=== PATIENT | male | born 1965 | race African-American/Black ===

== ENCOUNTER 2016-10-12 22:01 | Emergency (ER) | payer BC, OTHER ==
[2016-10-13] MEDS ORDERED: KETOROLAC TROMETHAMINE 60 MG/2 ML SDV IM ONE (00:39)
[2016-10-13] MEDS ORDERED: HYDROCODONE/ACETAMINOPHEN 5-325 MG 6 TAB/DSPK PO PRN (00:39)
[2016-10-13] MEDS ORDERED: LIDOCAINE 5% (700 MG) TRANSDERMAL ADH..PATCH TP ONE (00:39)
--- NOTE | 2016-10-13 00:40 | ER Document Report ---
ED General - General Chief Complaint: Knee Pain Stated Complaint: KNEE PAIN Notes: Patient is a 51-year-old male who presents with 2 weeks of right knee pain. Does describe the pain as a constant, throbbing, severe pain worsened by ambulation or weight. He has been trying tramadol with minimal improvement of the pain. It is worse in the medial aspect the right knee. Denies a prior history of similar symptoms in the past. He has not seen his primary care physician regarding today's concerns. Denies any acute traumatic injury to the area. - Related Data Allergies/Adverse Reactions: No Known Allergies Allergy (Unverified 10/12/16 22:15) Past Medical History - General Information source: Patient - Social History Smoking Status: Never Smoker Frequency of alcohol use: None Drug Abuse: None Lives with: Spouse/Significant other Family History: Reviewed & Not Pertinent Patient has suicidal ideation: No Patient has homicidal ideation: No Renal/ Medical History: Denies: Hx Peritoneal Dialysis Review of Systems - Review of Systems Notes: Constitutional: Negative for fever. Cardiovascular: Negative for chest pain. Respiratory: Negative for shortness of breath. Gastrointestinal: Negative for vomiting Musculoskeletal: Negative for back pain. Positive for right knee pain Skin: Negative for rash. Neurological: Negative for weakness or numbness. 10 point ROS negative except as marked above and in HPI. Physical Exam - Vital signs Vitals: Temp Pulse Resp BP Pulse Ox 98.1 F 64 16 148/71 H 98 10/12/16 22:07 10/12/16 22:07 10/12/16 22:07 10/12/16 22:07 10/12/16 22:07 Interpretation: Hypertensive Notes: PHYSICAL EXAMINATION: GENERAL: Well-appearing, well-nourished and in no acute distress. HEAD: Atraumatic, normocephalic. EYES: sclera anicteric, conjunctiva are normal. ENT: Moist mucous membranes. NECK: Normal range of motion LUNGS: Normal work of breathing HEART: 2+ radial pulses bilaterally EXTREMITIES: Mild swelling of the right knee most prominent along the medial aspect the knee. Full flexion extension with moderate pain in all ranges of motion. There is no fluctuance to the right knee. No pain or palpitation the popliteal fossa. No calf edema or pain on palpation of the calf. NEUROLOGICAL: No focal neurological deficits. Moves all extremities spontaneously and on command. PSYCH: Normal mood, normal affect. SKIN: Warm, Dry, normal turgor, no rashes or lesions noted. Course - Re-evaluation Re-evalutation: 10/13/16 04:11 No evidence of a septic joint, gout flare, dislocation, or fracture on exam and imaging. Exam is most consistent with ligamentous injury. Vitals wnl. At this time, I do not see an indication for labs or further imaging. Will discharge with conservative measures, return precautions, and follow-up recommendations. - Vital Signs Vital signs: Temp Pulse Resp BP Pulse Ox 98.2 F 62 16 127/79 H 95 10/13/16 01:35 10/13/16 01:35 10/13/16 01:35 10/13/16 01:35 10/13/16 01:35 Discharge - Discharge Clinical Impression: Right knee pain Qualifiers: Chronicity: acute Qualified Code(s): M25.561 - Pain in right knee Condition: Good Disposition: HOME, SELF-CARE Additional Instructions: Your x-ray does not show any acute fracture today. You likely have a ligamentous strain. You should continue to take anti-inflammatories such as ibuprofen 600 mg every 6 hours. Continue to apply ice to the area is much your able. Please follow-up with your primary care physician if you do not have improving your symptoms in the next 1-2 weeks. Please return immediately if you develop weakness, numbness, spreading redness from the area, or any other symptoms that are concerning to you. Forms: Return to Work Referrals: DERRICK ORNELAS MD [Primary Care Provider] - Follow up as needed
[2016-10-13] MEDS ORDERED: LIDOCAINE 5% (700 MG) TRANSDERMAL ADH..PATCH ONE (01:20)
[2016-10-13 01:36] VITALS: BP 127/79
== END 2016-10-13 01:41 | disposition home or self-care (01) ==
LOC: ER 22:01
DX: M25.561 Pain in right knee (principal); Z79.899 Other long term (current) drug therapy
CPT/HCPCS: 99283; 96372; 73564; J1885

== ENCOUNTER 2017-01-01 06:03 | Day surgery (SDC) | payer BC ==
[2016-12-25 10:46] LABS: ABSOLUTE EOSINOPHILS # (AUTO) 0.1 10^3/uL (0.0-0.6); ABSOLUTE LYMPHOCYTES (AUTO) 2.1 10^3/uL (0.5-4.7); ABSOLUTE MONOCYTES (AUTO) 0.4 10^3/uL (0.1-1.4); ABSOLUTE NEUT (AUTO) 2.5 10^3/uL (1.7-8.2); BASOPHILS % (AUTO) 0.4 % (0-2); EOSINOPHILS % (AUTO) 2.2 % (0-6); HEMATOCRIT 41.9 % (37.9-51.0); HGB HCT DIFFERENCE 0.1; LYMPHOCYTES % (AUTO) 41.1 % (13-45); MEAN CORPUSCULAR HEMOGLOBIN 27.6 pg (27.0-33.4); MEAN CORPUSCULAR HGB CONC 33.5 g/dL (32.0-36.0); MEAN CORPUSCULAR VOLUME 83 fl (80-97); MONOCYTES % (AUTO) 8.3 % (3-13); RED BLOOD COUNT 5.07 10^6/uL (4.35-5.55); RED CELL DISTRIBUTION WIDTH 14.1 % (11.5-14.0); WHITE BLOOD COUNT 5.2 10^3/uL (4.0-10.5)
[2016-12-25 10:50] LABS: APPEARANCE,URINE CLEAR; BILIRUBIN,URINE NEGATIVE (NEGATIVE); GLUCOSE, URINE NEGATIVE (NEGATIVE); KETONES,URINE NEGATIVE (NEGATIVE); LEUKOCYTE ESTERASE,URINE NEGATIVE (NEGATIVE); NITRITE,URINE NEGATIVE (NEGATIVE); PROTEIN,URINE NEGATIVE (NEGATIVE); URINE SPECIFIC GRAVITY 1.032; UROBILINOGEN,URINE NEGATIVE mg/dL (<2.0)
[2016-12-25 11:06] LABS: ANION GAP 11 (5-19); BLOOD UREA NITROGEN 11 mg/dL (7-20); CARBON DIOXIDE 29 mmol/L (22-30); CHLORIDE 103 mmol/L (98-107); CREATININE RESULT 0.75 mg/dL (0.52-1.25); GLUCOSE 105 mg/dL (75-110); POTASSIUM 4.4 mmol/L (3.6-5.0); SODIUM 142.7 mmol/L (137-145)
--- NOTE | 2016-12-25 22:04 | EKG REPORT ---
SEVERITY:- NORMAL ECG - SINUS RHYTHM ST ELEV, PROBABLE NORMAL EARLY REPOL PATTERN : Confirmed by: Belén Chaparro MD 25-Dec-2016 22:03:34
[~2017-01-01 06:03] MED LIST: CEFAZOLIN 2 GM/D5W RTU 2 GM/50 ML RTUPB IV PRN; LACTATED RINGERS 1000 ML IV PRN
[2017-01-01 06:49] LABS: PARTIAL THROMBOPLASTIN TIME 27.5 SEC (23.5-35.8)
[2017-01-01] MEDS ORDERED: MIDAZOLAM 2 MG/2 ML INJ ONE (08:20)
[2017-01-01] MEDS ORDERED: FENTANYL CITRATE INJ/PF 100 MCG/2 ML AMPUL ONE (08:20)
[2017-01-01] MEDS ORDERED: PROPOFOL INJ 200 MG/20 ML VIAL IV ONE (08:21)
[2017-01-01] MEDS ORDERED: ACETAMINOPHEN 100 ML IV ONE (08:21)
[2017-01-01] MEDS ORDERED: PROMETHAZINE HCL INJ 25 MG/1 ML VIAL IV PRN ×2 (08:39)
[2017-01-01] MEDS ORDERED: OXYCODONE-ACETAMINOPHEN 5-325 MG TABLET PO PRN ×2 (08:39)
[2017-01-01] MEDS ORDERED: DIPHENHYDRAMINE HCL 50 MG/ML VIAL IV PRN (08:39)
[2017-01-01] MEDS ORDERED: MORPHINE SULFATE 10 MG/ML INJ IV PRN (08:39)
[2017-01-01] MEDS ORDERED: MEPERIDINE HCL/PF INJ 25 MG/1 ML DISP.SYRIN IV PRN (08:39)
[2017-01-01] MEDS ORDERED: FENTANYL CITRATE INJ/PF 100 MCG/2 ML AMPUL IV PRN ×3 (08:39)
[2017-01-01] MEDS ORDERED: BUPIVACAINE HCL 0.5 % INJ/PF 30 ML SDV ONE (09:01)
[2017-01-01] MEDS ORDERED: LIDOCAINE 1%/EPINEPHRINE INJ 20 ML VIAL ONE (09:01)
--- NOTE | 2017-01-01 09:14 | Operative Report ---
Operative Report DATE OF SURGERY: 01/01/17 PREOPERATIVE DIAGNOSIS: Right medial meniscal tear POSTOPERATIVE DIAGNOSIS: Right medial meniscal tear. 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 Intact anterior cruciate ligament. Intact lateral meniscus. Grade 1 chondral malacia lateral compartment. 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 The knee is insufflated with comminution Marcaine, Xylocaine, and epinephrine. Subsequent medial and lateral infrapatellar portals are created for the introduction the arthroscope and debridements mentation. Joint is examined in systematic fashion findings as above. Using comminution of basket Farrar, mechanical shaver, and left or frequency ablation probe a partial medial meniscectomy was performed from approximately 3: 00 to 12:00 in the face the dial. The osteochondral lesion in the trochlear groove which may also be described as a chondral delamination is debrided using a curette to remove all loose articular fragments. Subsequently the underlying subchondral bone is pockmarked using a spinal needle to effect a microfracture. At this point the joint. Again is a is examined in systematic fashion with no new findings. The incidence mentation is removed. The portals closed using interrupted nylon. A sterile compressive dressing is applied and the patient's returned to the PACU.
[2017-01-01] MEDS ORDERED: OXYCODONE HCL IR 5 MG TABLET PO PRN (09:20)
[2017-01-01] MEDS ORDERED: ONDANSETRON 4 MG TAB.RAPDIS PO PRN (09:21)
[2017-01-01 11:25] VITALS: BP 126/79
== END 2017-01-01 11:20 | disposition home or self-care (01) ==
LOC: OROUT 06:03
PROVIDERS: ATTEND Orthopaedic Surgery
PROC: 0SBC4ZZ Excision of Right Knee Joint, Percutaneous Endoscopic Approach (ICD-10-PCS; 2017-01-01)
PROC: 0SQC4ZZ Repair Right Knee Joint, Percutaneous Endoscopic Approach (ICD-10-PCS; principal; 2017-01-01 08:15)
DX: M23.205 Derangement of unspecified medial meniscus due to old tear or injury, unspecified knee (principal); M94.261 Chondromalacia, right knee; M93.261 Osteochondritis dissecans, right knee; I10 Essential (primary) hypertension; Z79.899 Other long term (current) drug therapy
CPT/HCPCS: 93005; 36415 ×2; 85025; 85610; 85730; 80048; 81001; 71020; 93010; 29879; 29881; J2250; J3010; J3490; J2704; J0690; J0131

== ENCOUNTER 2018-11-24 18:37 | Emergency (ER) | payer BC ==
[2018-11-24] MEDS ORDERED: ASPIRIN 81 MG TABLET, CHEWABLE PO ONE (20:17)
[2018-11-24 21:00] LABS: ABSOLUTE EOSINOPHILS # (AUTO) 0.2 10^3/uL (0.0-0.6); ABSOLUTE LYMPHOCYTES (AUTO) 2.4 10^3/uL (0.5-4.7); ABSOLUTE MONOCYTES (AUTO) 0.6 10^3/uL (0.1-1.4); ABSOLUTE NEUT (AUTO) 3.2 10^3/uL (1.7-8.2); BASOPHILS % (AUTO) 0.4 % (0-2); EOSINOPHILS % (AUTO) 2.7 % (0-6); HEMATOCRIT 41.3 % (37.9-51.0); HEMOGLOBIN 13.9 g/dL (13.5-17.0); LYMPHOCYTES % (AUTO) 37.8 % (13-45); MEAN CORPUSCULAR HEMOGLOBIN 28.4 pg (27.0-33.4); MEAN CORPUSCULAR HGB CONC 33.8 g/dL (32.0-36.0); MEAN CORPUSCULAR VOLUME 84 fl (80-97); MONOCYTES % (AUTO) 8.8 % (3-13); PLATELET COUNT 249 10^3/uL (150-450); RED CELL DISTRIBUTION WIDTH 13.9 % (11.5-14.0); SEGMENTED NEUTROPHILS % (AUTO) 50.3 % (42-78); TOTAL CELLS COUNTED % (AUTO) 100 %; WHITE BLOOD COUNT 6.4 10^3/uL (4.0-10.5)
--- NOTE | 2018-11-24 21:11 | RADIOLOGY REPORT (SQ) ---
EXAM DESCRIPTION: XR CHEST 1 VIEW COMPLETED DATE/TME: 11/24/2018 20:17 CLINICAL HISTORY: 53 years, Male, chest pain COMPARISON: 12/25/2016 NUMBER OF VIEWS: One TECHNIQUE: One PA view of the chest LIMITATIONS: None. FINDINGS: Cardiomediastinal silhouette is within normal limits. No lung consolidate. No pleural effusion. No pneumothorax. A coronary artery stent is again noted. Osseous structures are without acute finding IMPRESSION: No acute chest finding. copyright 2010 [employer]- All Rights Reserved
--- NOTE | 2018-11-24 21:12 | ER Document Report ---
Entered by JODI GARCIA SCRIBE 11/24/182020 Acting as scribe for:LUIZ TAVAREZ DO ED Medical Screen (RME) - General Chief Complaint: Chest Pain Stated Complaint: CHEST PAIN Time Seen by Provider: 11/24/18 20:10 Primary Care Provider: DERRICK ORNELAS MD [Primary Care Provider] - Follow up as needed Mode of Arrival: Ambulatory Information source: Patient Notes: Patient is a 53 year old male with 2 cardiac stents presents to the emergency department complaining of chest pain onset yesterday. Patient states he had just finished eating lunch around 1300 when he began to have chest pain. He describes the pain as a large "gas bubble" located over his chest. He states the pain currently feels like a soreness. He states he took an 81 mg dose of aspirin prior to arrival to the emergency department. He denies any trouble breathing or nausea. Patient reports his last cardiac cath and stress test occurring approximately 4+ years ago. I have greeted and performed a rapid initial assessment of the patient. A comprehensive ED assessment and evaluation of the patient, analysis of test results, and completion of the medical decision making process will be conducted by additional ED providers. GENERAL: Alert, currently wearing a diaper. interacts well. No acute distress. HEAD: Normocephalic, atraumatic. EYES: Pupils equal, round, and reactive to light. Extraocular movements intact. ENT: Oral mucosa moist, tongue midline. NECK: Full range of motion. Supple. Trachea midline. HEART: Regular rate and rhythm. No murmurs, gallops or rubs. LUNGS: Clear to auscultation bilaterally. No respiratory distress. NEUROLOGICAL: Alert and oriented x3. Normal speech. PSYCH: Normal affect, normal mood. SKIN: Warm, dry, normal turgor. No rashes or lesions noted. TRAVEL OUTSIDE OF THE [place] IN LAST 30 DAYS: No - Related Data Allergies/Adverse Reactions: No Known Allergies Allergy (Verified 11/24/18 20:08) Past Medical History - Past Medical History Cardiac Medical History: Reports: Hx Coronary Artery Disease - on meds, Hx Heart Attack - 2005,2012, Hx Hypertension - on meds Pulmonary Medical History: Denies: Hx Asthma, Hx Bronchitis, Hx COPD, Hx Pneumonia Neurological Medical History: Denies: Hx Cerebrovascular Accident, Hx Seizures Renal/ Medical History: Denies: Hx Peritoneal Dialysis Musculoskeltal Medical History: Reports Hx Arthritis - rt knee - Immunizations Hx Diphtheria, Pertussis, Tetanus Vaccination: Yes Physical Exam - Vital signs Vitals: Temp Pulse Resp BP Pulse Ox 99.3 F 69 18 182/84 H 100 11/24/18 18:43 11/24/18 18:43 11/24/18 18:43 11/24/18 18:43 11/24/18 18:43 Course - Vital Signs Vital signs: Temp Pulse Resp BP Pulse Ox 99.3 F 69 18 182/84 H 100 11/24/18 18:43 11/24/18 18:43 11/24/18 18:43 11/24/18 18:43 11/24/18 18:43 Doctor's Discharge - Discharge Referrals: DERRICK ORNELAS MD [Primary Care Provider] - Follow up as needed I personally performed the services described in the documentation, reviewed and edited the documentation which was dictated to the scribe in my presence, and it accurately records my words and actions.
[2018-11-24 21:21] LABS: ALANINE AMINOTRANSFERASE 38 U/L (21-72); ALBUMIN 4.4 g/dL (3.5-5.0); ALKALINE PHOSPHATASE 116 U/L (38-126); ANION GAP 10 (5-19); ASPARTATE AMINO TRANSFERASE 34 U/L (17-59); BILIRUBIN,DIRECT 0.2 mg/dL (0.0-0.4); BILIRUBIN,TOTAL 0.3 mg/dL (0.2-1.3); BLOOD UREA NITROGEN 12 mg/dL (7-20); CARBON DIOXIDE 29 mmol/L (22-30); CHLORIDE 104 mmol/L (98-107); CREATINE KINASE 564 U/L (55-170); GLUCOSE 99 mg/dL (75-110); POTASSIUM 4.2 mmol/L (3.6-5.0); SODIUM 143.1 mmol/L (137-145)
[2018-11-24 21:36] LABS: CREATINE KINASE MB 4.01 ng/mL (<4.55)
[2018-11-24 21:37] LABS: TROPONIN I < 0.012 ng/mL
[2018-11-24] MEDS ORDERED: LIDOCAINE 2% VISCOUS SOLN 20 ML UDCUP PO ONE (22:50)
[2018-11-24] MEDS ORDERED: MAG HYDROX/AL HYDROX/SIMETH SUSP 30 ML UDCUP PO ONE (22:50)
[2018-11-24] MEDS ORDERED: METOCLOPRAMIDE HCL ORAL SOLN 10 MG/10 ML UDCUP PO ONE (22:50)
--- NOTE | 2018-11-24 22:55 | ER Document Report ---
ED Cardiac - General Chief Complaint: Chest Pain Stated Complaint: CHEST PAIN Time Seen by Provider: 11/24/18 20:10 Primary Care Provider: DERRICK ORNELAS MD [Primary Care Provider] - Follow up as needed Mode of Arrival: Ambulatory TRAVEL OUTSIDE OF THE [place] IN LAST 30 DAYS: No - HPI Notes: Patient is a 53-year-old male that presents to the emergency department for chief complaint of chest pain. Patient states yesterday afternoon he started to have an epigastric pain that radiates up into his lower sternal region. He describes it as a "bubble" and pressure sensation. He states it feels like he has to belch. The pain has been constant without any periods of resolution since onset yesterday. He currently states it has subsided some but has not gone away completely. He denies any associated symptoms including shortness of breath, palpitations, nausea and diaphoresis. He does have a history of cardiac stenting x2 and has been compliant with aspirin and Brilinta as well as statin centimeters blood pressure medications. His last stress test and heart catheterization were 4 years ago. Patient does not currently have a jailer/training officer in the area since recently moving from [facility]. Patient did take full aspirin today. He does report eating poorly over the last week stating he usually has a healthy diet but has recently been eating more fried foods including fried pork chops yesterday prior to onset of symptoms. Past Medical History: CAD, hypertension, hyperlipidemia Past Surgical History: Right knee surgery, coronary stenting x2 Social History: Denies tobacco. Occasional alcohol. Denies drug use. Family History: Reviewed and noncontributory for presenting illness Allergies: Reviewed, see documented allergy list. REVIEW OF SYSTEMS: CONSTITUTIONAL : No fever No chills No diaphoresis No recent illness EENT: No vision changes No congestion No sore throat CARDIOVASCULAR: chest pain No palpitations RESPIRATORY: No shortness of breath No cough No difficulty breathing GASTROINTESTINAL: abdominal pain No nausea No vomiting No diarrhea GENITOURINARY: No dysuria No hematuria No difficulty urinating MUSCULOSKELETAL: No back pain No leg pain No arm pain SKIN: No rashes No lesions LYMPHATIC: No swollen, enlarged glands. NEUROLOGICAL: No lightheadedness No headache No weakness No paresthesias PSYCHIATRIC: No anxiety No depression PHYSICAL EXAMINATION: Vital signs reviewed, nursing noted reviewed. GENERAL: Well-appearing, well-nourished and in no acute distress. HEAD: Atraumatic, normocephalic. EYES: Eyes appear normal, extraocular movements intact, sclera anicteric, conjunctiva are normal. ENT: nares patent, oropharynx clear without exudates. Moist mucous membranes. NECK: Normal range of motion, supple without lymphadenopathy LUNGS: Breath sounds clear to auscultation bilaterally and equal. No wheezes rales or rhonchi. HEART: Regular rate and rhythm without murmurs ABDOMEN: Soft, nontender, normoactive bowel sounds. No rebound, guarding, or rigidity. No masses appreciated. EXTREMITIES: Nontender, good range of motion, no pitting or edema. NEUROLOGICAL: No focal neurological deficits. Moves all extremities spontaneou sly Motor and sensory grossly intact on exam. PSYCH: Normal mood, normal affect. SKIN: Warm, Dry, normal turgor, no rashes or lesions noted on exposed skin - Related Data Allergies/Adverse Reactions: No Known Allergies Allergy (Verified 11/24/18 20:08) Past Medical History - General Information source: Patient - Social History Smoking Status: Never Smoker Chew tobacco use (# tins/day): No Frequency of alcohol use: None Drug Abuse: None Family History: Reviewed & Not Pertinent Patient has suicidal ideation: No Patient has homicidal ideation: No - Past Medical History Cardiac Medical History: Reports: Hx Coronary Artery Disease - on meds, Hx Heart Attack - 2005,2012, Hx Hypertension - on meds Pulmonary Medical History: Denies: Hx Asthma, Hx Bronchitis, Hx COPD, Hx Pneumonia Neurological Medical History: Denies: Hx Cerebrovascular Accident, Hx Seizures Renal/ Medical History: Denies: Hx Peritoneal Dialysis Musculoskeletal Medical History: Reports Hx Arthritis - rt knee Past Surgical History: Reports: Hx Cardiac Catheterization - w/stent, Hx Orthopedic Surgery - right knee - Immunizations Hx Diphtheria, Pertussis, Tetanus Vaccination: Yes Physical Exam - Vital signs Vitals: Temp Pulse Resp BP Pulse Ox 99.3 F 69 18 182/84 H 100 11/24/18 18:43 11/24/18 18:43 11/24/18 18:43 11/24/18 18:43 11/24/18 18:43 Course - Re-evaluation Re-evalutation: 11/24/18 22:52 Vitals reviewed. Nursing notes reviewed. Patient is in no acute distress. His EKG shows no ischemic changes. Patient symptoms have been constant since onset yesterday without any resolution. His troponin is negative in the emergency room today. With constant chest pain and a negative troponin the etiology of his symptoms is very unlikely to be cardiac. I did give him a GI cocktail and will start him on omeprazole. We had a discussion about dietary changes. Patient will be referred to Dr. Leo to establish care with cardiology in the area. I did explain his risk factors for further cardiac disease and encouraged him to return for any new or worsening symptoms. He will follow closely with his PCP for reevaluation in the next few days. He is discharged home in stable condition. Laboratory 11/24/18 11/24/18 11/24/18 20:50 20:50 20:50 WBC 6.4 RBC 4.90 Hgb 13.9 Hct 41.3 MCV 84 MCH 28.4 MCHC 33.8 RDW 13.9 Plt Count 249 Seg Neutrophils % 50.3 Lymphocytes % 37.8 Monocytes % 8.8 Eosinophils % 2.7 Basophils % 0.4 Absolute Neutrophils 3.2 Absolute Lymphocytes 2.4 Absolute Monocytes 0.6 Absolute Eosinophils 0.2 Absolute Basophils 0.0 Sodium 143.1 Potassium 4.2 Chloride 104 Carbon Dioxide 29 Anion Gap 10 BUN 12 Creatinine 0.89 Est GFR ( Amer) > 60 Est GFR (Non-Af Amer) > 60 Glucose 99 Calcium 10.0 Total Bilirubin 0.3 Direct Bilirubin 0.2 Neonat Total Bilirubin Not Reportable Neonat Direct Bilirubin Not Reportable Neonat Indirect Bili Not Reportable AST 34 ALT 38 Alkaline Phosphatase 116 Creatine Kinase 564 H CK-MB (CK-2) 4.01 Troponin I < 0.012 Total Protein 7.0 Albumin 4.4 Chest X-Ray 11/24/18 20:17 IMPRESSION: No acute chest finding. copyright 2010 [employer]- All Rights Reserved - Vital Signs Vital signs: Temp Pulse Resp BP Pulse Ox 99.3 F 69 18 182/84 H 100 11/24/18 18:43 11/24/18 18:43 11/24/18 18:43 11/24/18 18:43 11/24/18 18:43 - Laboratory Result Diagrams: 11/24/18 20:50 11/24/18 20:50 Laboratory results interpreted by me: 11/24/18 20:50 Creatine Kinase 564 H - EKG Interpretation by Me Additional EKG results interpreted by me: 11/24/18 22:54 Interpreted by myself 1850: Normal sinus rhythm, rate 63, normal axis, no ectopy, no STEMI Discharge - Discharge Clinical Impression: Abdominal pain Qualifiers: Abdominal location: epigastric Qualified Code(s): R10.13 - Epigastric pain Chest pain Qualifiers: Chest pain type: unspecified Qualified Code(s): R07.9 - Chest pain, unspecified Condition: Stable Disposition: HOME, SELF-CARE Instructions: Abdominal Pain ([facility]), Reflux Disease (GERD) ([facility]), Chest Pain of Unclear Cause ([facility]) Additional Instructions: Please return to the emergency department if you have any worsening, or concern of your symptoms. Please return to the emergency department if you develop chest pain, difficulty breathing, severe abdominal pain, or ongoing vomiting. Please follow-up with your primary care physician in 2-3 days and any other recommended physicians. If prescribed, take all medications as directed. If you have any questions or concerns do not hesitate to return the emergency department for evaluation. Prescriptions: Omeprazole 40 mg PO DAILY #30 capsule.dr Referrals: SABINE LEO MD [ACTIVE STAFF] - Follow up as needed DERRICK ORNELAS MD [Primary Care Provider] - Follow up in 3-5 days
[2018-11-24 23:10] VITALS: BP 121/79
--- NOTE | 2018-11-25 01:26 | EKG REPORT ---
SEVERITY:- NORMAL ECG - SINUS RHYTHM : Confirmed by: Belén Chaparro MD 25-Nov-2018 01:26:16
== END 2018-11-24 23:20 | disposition home or self-care (01) ==
LOC: ER 18:37
DX: R07.9 Chest pain, unspecified (principal); R10.13 Epigastric pain; R06.02 Shortness of breath; R00.2 Palpitations; R11.0 Nausea; R61 Generalized hyperhidrosis; I25.10 Atherosclerotic heart disease of native coronary artery without angina pectoris; I10 Essential (primary) hypertension
CPT/HCPCS: 93005; 99284; 36415; 82553; 82550; 85025; 80053; 84484; 71045; 93010; J3490